=== PATIENT | male | born 1965 | race Caucasian/White ===

== ENCOUNTER 2020-01-16 17:45 | Emergency (ER) | payer MEDICAID ==
[~2020-01-16] VITALS: Ht 172.7 cm; Wt 108.9 kg
[2020-01-16 17:45] VITALS: BP_SYST 190
[2020-01-16] MEDS ORDERED: NACL 0.9% 1,000 ML IV ONE (18:00)
[2020-01-16] MEDS ORDERED: LORazepam 2 MG/ML VIAL IVP ONE (18:00)
[2020-01-16 18:21] LABS: BASOPHILS # (AUTO) 0.1 K/uL (0.0-0.2); BASOPHILS % (AUTO) 0.5 % (0.0-2.0); EOSINOPHILS % (AUTO) 0.1 % (0.0-4.0); HEMOGLOBIN 14.5 g/dL (14.0-18.0); LYMPHOCYTES # (AUTO) 2.7 K/uL (1.0-5.5); LYMPHOCYTES % (AUTO) 20.2 % (20.5-51.5); MEAN CORPUSCULAR HEMOGLOBIN 30 pg (27-31); MEAN CORPUSCULAR HGB CONC 32 % (32-36); MEAN CORPUSCULAR VOLUME 92 fL (79.0-98.0); MONOCYTES # (AUTO) 1.4 K/uL (0.0-1.0); MONOCYTES % (AUTO) 10.2 % (1.7-9.3); NEUTROPHILS # (AUTO) 9.1 K/uL (1.8-7.7); PLATELET COUNT (AUTO) 264 K/uL (130-430); RED BLOOD CELL COUNT(AUTO) 4.87 MIL/uL (4.2-6.2); RED CELL DISTRIBUTION WIDTH 13.5 % (9.0-15.0); WHITE BLOOD COUNT (AUTO) 13.3 K/uL (4.8-10.8)
[2020-01-16 18:35] LABS: ANION GAP 14 (5-15); CALCIUM 10.1 mg/dL (8.4-11.0); CHLORIDE 110 mmol/L (98-107); CREATININE 1.49 mg/dL (0.55-1.30); GLUCOSE 103 mg/dL (70-99); SODIUM SERUM 149 mmol/L (136-145); UREA NITROGEN, BLOOD 23 mg/dL (8-21)
[2020-01-16 18:36] LABS: GFR AFRICAN AMERICAN 64 mL/min (>90)
[2020-01-16 18:41] LABS: ALANINE AMINOTRANSFERASE 27 U/L (12-78); ALBUMIN 4.4 g/dL (3.4-4.8); ALCOHOL, BLOOD 3 mg/dL (<10); ASPARTATE AMINOTRANSFERASE 21 U/L (10-37); TOTAL BILIRUBIN 0.5 mg/dL (0.0-1.0)
[2020-01-16 18:42] LABS: ACETAMINOPHEN < 1 ug/mL (1-30)
[2020-01-16 19:49] LABS: BARBITURATE, URINE NEGATIVE (NEG <=200); METHAMPHETAMINES SCREEN,URINE NEGATIVE (NEG <=500); URINE AMPHETAMINE POSITIVE (NEG <=500); URINE OXYCODONE SCREEN POSITIVE (NEG <=100)
[2020-01-16 19:50] LABS: BENZODIAZEPINE, URINE NEGATIVE (NEG <=150); CANNABINOID, URINE NEGATIVE (NEG <=50); COCAINE, URINE NEGATIVE (NEG <=150); OPIATE, URINE NEGATIVE (NEG <=100); PHENCYCLIDINE SCREEN,URINE NEGATIVE (NEG <=25); UR TRICYCLIC ANTIDEPRESSANTS NEGATIVE (NEG <=300); URINE METHADONE NEGATIVE (NEG <=200); URINE PROPOXYPHENE SCREEN NEGATIVE (NEG <=300)
[2020-01-17] MEDS ORDERED: HALOPERIDOL LACTATE 5 MG/ML VIAL IM ONE (07:00)
[2020-01-17] MEDS ORDERED: LORazepam 2 MG/ML VIAL IM ONE (07:00)
[2020-01-17] MEDS ORDERED: DIPHENHYDRAMINE INJ 50 MG/ML VIAL IM ONE (07:00)
[2020-01-17] MEDS ORDERED: LORazepam 2 MG/ML VIAL ONE (07:09)
[2020-01-17] MEDS ORDERED: HALOPERIDOL LACTATE 5 MG/ML VIAL ONE (07:11)
[2020-01-17] MEDS ORDERED: DIPHENHYDRAMINE INJ 50 MG/ML VIAL ONE (07:11)
[2020-01-17 09:02] VITALS: BP_SYST 162
== END 2020-01-17 09:02 ==
LOC: SED 17:45
DX: R41.82 Altered mental status, unspecified (principal)
CPT/HCPCS: 36415; 70450; 71045; 71250; 80053; 80307; 82803; 84484; 85025; 93005; 96361; 96372; 96374; 99291; 99292; G0480; G0481; G0482; J1200; J1630; J2060 ×2; J7030; 99285